=== PATIENT | female | born 1945 | race Caucasian/White ===

== ENCOUNTER 2018-10-14 22:29 | Emergency (ER) | payer MEDICARE, OTHER ==
[~2018-10-14] VITALS: Ht 165.1 cm; Wt 87.1 kg
[2018-10-14 22:55] VITALS: BP 151/85
[2018-10-14] MEDS ORDERED: CEPH-264 PO (23:33)
--- NOTE | 2018-10-14 23:34 | PHYS DOC ---
Past History Past Medical History: Fibromyalgia, Hypertension Past Surgical History: Appendectomy, Cholecystectomy, Hysterectomy, Knee Replacement, Other Alcohol Use: None Drug Use: None Adult General Chief Complaint Chief Complaint: LACERATION/AVULSION [facility] HPI 73-year-old female presents with laceration of the medial right ankle. The patient was working in her lumbar she backed into something. She is not sure what it is. She began to feel a burning sensation and noticed she was bleeding. When she got back to the house and took her sock off she realizes she had a laceration. This would likely need stitches so she came to the emergency room. Patient denies any other injuries. Her tetanus is not up-to-date. She is allergic to the tDap vaccine. She denies any other injuries or complaints. Review of Systems Review of Systems Constitutional: Denies fever or chills [] Eyes: Denies change in visual acuity, redness, or eye pain [] HENT: Denies nasal congestion or sore throat [] Respiratory: Denies cough or shortness of breath [] Cardiovascular: No additional information not addressed in HPI [] GI: Denies abdominal pain, nausea, vomiting, bloody stools or diarrhea [] : Denies dysuria or hematuria [] Musculoskeletal: Denies back pain or joint pain [] Integument: Laceration[] Neurologic: Denies headache, focal weakness or sensory changes [] Endocrine: Denies polyuria or polydipsia [] All other systems were reviewed and found to be within normal limits, except as documented in this note. Allergies Allergies Allergies Coded Allergies Type Severity Reaction Last Updated Verified Penicillins Allergy Severe Anaphylaxis 10/14/18 Yes ciprofloxacin Allergy Severe Swelling 10/14/18 Yes codeine Allergy Unknown Unknown 10/14/18 Yes iodine Allergy Unknown 10/14/18 Yes tetanus and diphtheria toxoids Allergy Unknown 10/14/18 Yes Physical Exam Physical Exam Constitutional: Well developed, well nourished, no acute distress, non-toxic appearance. [] HENT: Normocephalic, atraumatic, bilateral external ears normal, oropharynx moist, no oral exudates, nose normal. [] Eyes: PERRLA, EOMI, conjunctiva normal, no discharge. [] Neck: Normal range of motion, no tenderness, supple, no stridor. [] Cardiovascular:Heart rate regular rhythm, no murmur [] Lungs & Thorax: Bilateral breath sounds clear to auscultation [] Abdomen: Bowel sounds normal, soft, no tenderness, no masses, no pulsatile masses. [] Skin: 2.5 cm laceration of the medial right ankle[] Back: No tenderness, no CVA tenderness. [] Extremities: No tenderness, no cyanosis, no clubbing, ROM intact, no edema. [] Neurologic: Alert and oriented X 3, normal motor function, normal sensory funct ion, no focal deficits noted. [] Psychologic: Affect normal, judgement normal, mood normal. [] Current Patient Data Vital Signs Vital Signs Date Time Temp Pulse Resp B/P (MAP) Pulse Ox O2 Delivery O2 Flow Rate FiO2 10/14/18 22:55 98.2 84 18 98 Room Air EKG EKG [] Radiology/Procedures Radiology/Procedures [] Course & Med Decision Making Course & Med Decision Making Pertinent Labs and Imaging studies reviewed. (See chart for details) The patient's wound did require sutures. I was able to repair the wound. See laceration note below for more details. She is stable for discharge at this time. I will place her on Keflex prophylactically. She has tolerated this medication in the past without complications. [] Dragon Disclaimer Dragon Disclaimer This electronic medical record was generated, in whole or in part, using a voice recognition dictation system. Laceration Repair Lac Repair Indication: []2.5 cm linear laceration of the right medial ankle. Procedure: I obtained verbal consent from the patient for suture repair of her laceration. 2% lidocaine with epinephrine was used for anesthesia. A total of 3 mL was used. Once good anesthesia was achieved, the wound was thoroughly irrigated with saline under pressure. No foreign bodies were found. I repaired the wound with 3 4-0 Ethilon sutures in interrupted fashion. The wound was covered with a nonadherent pad and Coban. Total repaired wound length: 2.5 cm Other Items: None The patient tolerated the procedure well Complications: None. Departure Departure: Impression: Primary Impression: Laceration of right ankle Disposition: 01 HOME, SELF-CARE Condition: STABLE Referrals: TRAVIS MUNOZ DO, DR (PCP) Patient Instructions: Laceration Care, Adult, [id number] Scripts Cephalexin (KEFLEX) 500 Mg Capsule 1 CAP PO TID for ankle laceration, #21 CAP Prov: LINDEN JOHNSTON DO 10/14/18 Problem Qualifiers Primary Impression: Laceration of right ankle Encounter type: initial encounter Qualified Codes: S91.011A - Laceration without foreign body, right ankle, initial encounter LINDEN JOHNSTON DO Oct 14, 2018 23:34
[2018-10-14] MEDS ORDERED: CEPHALEXIN 250 MG CAPSULE PO ONE (23:45)
== END 2018-10-14 23:42 | disposition home or self-care (01) ==
LOC: ER 22:29
DX: S91.011A Laceration without foreign body, right ankle, initial encounter (principal); M79.7 Fibromyalgia; I10 Essential (primary) hypertension; Z88.0 Allergy status to penicillin; Z88.1 Allergy status to other antibiotic agents; Z88.5 Allergy status to narcotic agent; Z88.8 Allergy status to other drugs, medicaments and biological substances; Z88.7 Allergy status to serum and vaccine; X58.XXXA Exposure to other specified factors, initial encounter; Y93.89 Activity, other specified; Y92.89 Other specified places as the place of occurrence of the external cause; Y99.0 Civilian activity done for income or pay
CPT/HCPCS: 12001; 99284-25

== ENCOUNTER 2020-12-04 16:03 | Emergency (ER) | payer OTHER, MEDICARE ==
[~2020-12-04] VITALS: Ht 166.9 cm; Wt 88.4 kg
[~2020-12-04 16:03] MED LIST: CEPH-264 PO
--- NOTE | 2020-12-04 16:37 | PHYS DOC ---
Past History Past Medical History: Fibromyalgia, Hypertension (DANIEL CLINTON DO) Past Surgical History: Appendectomy, Cholecystectomy, Hysterectomy, Knee Replacement, Other (DANIEL CLINTON DO) Alcohol Use: None Drug Use: None (DANIEL CLINTON DO) Adult General Chief Complaint Chief Complaint: HYPERTENSION HPI HPI Patient is a 75-year-old female presenting for hypertension. Reports known history of hypertension and has been on same meds for months. She is followed in outpatient setting by primary care physician but given Covid pandemic she has not been able to follow-up in outpatient setting for over a year now. She did not have a blood pressure cuff until 48 hours ago when she obtained a new wrist blood pressure cuff. She has been taking her blood pressure with this never since has been concerned due to consistently elevated readings greater than 180/100. She reports having mild headache and chronic edema in bilateral lower extremities. No dizziness, blurred vision, chest pain, ripping or tearing sensation in chest, shortness of breath, motor or sensory or neuro changes. (DANIEL CLINTON DO) Review of Systems Review of Systems Fourteen body systems of review of systems have been reviewed. See HPI for pertinent positives and negative responses, other escobar all other systems are negative, non-pertinent or non-contributory (DANIEL CLINTON DO) Allergies Allergies Allergies Coded Allergies Type Severity Reaction Last Updated Verified Penicillins Allergy Severe Anaphylaxis 12/04/20 Yes ciprofloxacin Allergy Severe Swelling 12/04/20 Yes codeine Allergy Unknown Unknown 12/04/20 Yes iodine Allergy Unknown 12/04/20 Yes tetanus and diphtheria toxoids Allergy Unknown 12/04/20 Yes (DANIEL CLINTON DO) Physical Exam Physical Exam Constitutional: Well developed, well nourished, no acute distress, non-toxic appearance. HENT: Normocephalic, atraumatic, bilateral external ears normal, oropharynx moist, no oral exudates, nose normal. Eyes: PERRLA, EOMI, conjunctiva normal, no discharge. Neck: Normal range of motion, no tenderness, supple, no stridor. Cardiovascular: Heart rate regular, sinus rhythm, no murmurs rubs or gallops Lungs & Thorax: Bilateral breath sounds clear to auscultation Abdomen: Bowel sounds normal, soft, no tenderness, no masses, no pulsatile masses. Nonsurgical abdomen, no peritoneal signs Skin: Warm, dry, no erythema, no rash. Back: No tenderness, no CVA tenderness. Extremities: No tenderness, no cyanosis, no clubbing, ROM intact, trace bilateral lower extremity edema Neurologic: Alert and oriented X 3, grossly normal motor & sensory function, no focal deficits noted. Psychologic: Anxious affect and mood (DANIEL CLINTON DO) Current Patient Data Vital Signs Vital Signs Date Time Temp Pulse Resp B/P (MAP) Pulse Ox O2 Delivery O2 Flow Rate FiO2 12/04/20 16:27 68 14 146/78 (100) 97 Room Air 12/04/20 16:17 98.5 (DANIEL CLINTON DO) EKG EKG EKG ordered and interpreted by myself at 1650 hrs. as sinus rhythm at 67 bpm, no interval abnormalities, left axis deviation, no acute ischemic findings, no STEMI (DANIEL CLINTON DO) Radiology/Procedures Radiology/Procedures Exam: Chest one view INDICATION: Lower extremity swelling, shortness of breath TECHNIQUE: Frontal view of the chest Comparisons: None FINDINGS: The cardiomediastinal silhouette and pulmonary vessels are within normal limits. The lung and pleural spaces are clear. IMPRESSION: No acute cardiopulmonary process. Electronically signed by: Giovani Langley MD (12/04/2020 5:27 PM) JAKE (DANIEL CLINTON DO) Heart Score C/O Chest Pain: No HEART Score for Chest Pain: HEART Score for Chest Pain Response (Comments) Value History Slighlty/Non-Suspicious 0 ECG Nonspecific Repolarizatio 1 Age > 65 2 Risk Factors >3 Risk Factors or Hx CAD 2 Troponin < Normal Limit 0 Total 5 Risk Factors: Risk Factors: DM, Current or recent (<one month) smoker, HTN, HLP, family history of CAD, obesity. Risk Scores: Risk Factors: DM, Current or recent (<one month) smoker, HTN, HLP, family history of CAD, obesity. (DANIEL CLINTON DO) Course & Med Decision Making Course & Med Decision Making Vitals stable. HPI physical exam and comprehensive ER work-up obtained At end of my shift, patient still pending laboratory analysis. Comprehensive signout given to oncoming physician. Please defer to their documentation regarding future care of patient while in ER (DANIEL CLINTON DO) Course & Med Decision Making Patient care handed off to me at checkout pending troponin. Patient alert and oriented no acute distress. Vital signs not concerning. Troponin normal. Laboratory analysis otherwise unremarkable except elevated BNP. Discussed all findings with patient. Advised to call primary care physician first thing in the morning to update on ED visit and set up a follow-up appointment as soon as possible to discuss need for further evaluation and treatment. Gave return precautions to the ED. Patient grateful, verbalized understanding and agreed with plan of discharge. (JAQUELINE MCCARTHY MD) Dragon Disclaimer Dragon Disclaimer This electronic medical record was generated, in whole or in part, using a voice recognition dictation system. (DANIEL CLINTON DO) Departure Departure: Impression: Primary Impression: Hypertension Additional Impression: Edema Disposition: HOME / SELF CARE / HOMELESS Condition: STABLE Referrals: TRAVIS MUNOZ DO, DR (PCP) Additional Instructions: As discussed prior to ER departure, your vital signs, physical examination and comprehensive ER work-up were nonconcerning for any emergent or surgical issues You have known issues with high blood pressure. As discussed, it is likely the acquisition of your new wrist cuff. We also discussed your lower extremity edema which is chronic in nature. It is advised that you contact your primary care physician for both issues above for continuity of care and for likely need of further diagnostic work-up in outpatient setting such as echocardiogram Any concerning signs or symptoms present prior to outpatient follow-up please do not hesitate to contact your primary care physician directly and/or come back for repeat evaluation. It was a pleasure to take care of you and I wish you the best going forward Problem Qualifiers DANIEL CLINTON DO Dec 04, 2020 16:37 JAQUELINE MCCARTHY MD Dec 04, 2020 18:16
--- NOTE | 2020-12-04 17:02 | EKG ---
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
[2020-12-04 17:29] LABS: BASO # 0.1 x10^3/uL (0.0-0.2); BASO % 1 % (0-3); EOS # 0.1 x10^3/uL (0.0-0.7); EOS % 1 % (0-3); HEMATOCRIT 42.2 % (36.0-47.0); HEMOGLOBIN 13.5 g/dL (12.0-15.5); LYMPH % 19 % (24-48); MEAN CORPUSCULAR HEMOGLOBIN 31 pg (25-35); MEAN CORPUSCULAR HGB CONC 32 g/dL (31-37); MEAN CORPUSCULAR VOLUME 97 fL (79-100); MONO # 0.7 x10^3/uL (0.0-1.1); MONO % 7 % (0-9); NEUT # 7.3 x10^3uL (1.8-7.7); NEUT % 72 % (31-73); PLATELET COUNT 296 x10^3/uL (140-400); RED BLOOD COUNT 4.34 x10^6/uL (3.50-5.40); RED CELL DISTRIBUTION WIDTH 15.3 % (11.5-14.5); WHITE BLOOD COUNT 10.2 x10^3/uL (4.0-11.0)
--- NOTE | 2020-12-04 17:30 | RAD ---
Exam: Chest one view INDICATION: Lower extremity swelling, shortness of breath TECHNIQUE: Frontal view of the chest Comparisons: None FINDINGS: The cardiomediastinal silhouette and pulmonary vessels are within normal limits. The lung and pleural spaces are clear. IMPRESSION: No acute cardiopulmonary process. Electronically signed by: Giovani Langley MD (12/04/2020 5:27 PM) JAKE
[2020-12-04 17:44] LABS: CALCIUM 9.2 mg/dL (8.5-10.1); CREATININE 1.8 mg/dL (0.6-1.0); GFR 27.6; POTASSIUM 4.5 mmol/L (3.5-5.1)
[2020-12-04 18:56] VITALS: BP 136/67
== END 2020-12-04 19:03 | disposition home or self-care (01) ==
LOC: ER 16:03
DX: I10 Essential (primary) hypertension (principal); R60.0 Localized edema; R51.9 Headache, unspecified; M79.7 Fibromyalgia; Z88.0 Allergy status to penicillin; Z88.1 Allergy status to other antibiotic agents; Z88.5 Allergy status to narcotic agent; Z88.8 Allergy status to other drugs, medicaments and biological substances; Z88.7 Allergy status to serum and vaccine
CPT/HCPCS: 36415; 71045; 80048; 83880; 84484; 85025; 93005; 99285